=== PATIENT | female | born 1950 | race Caucasian/White ===

== ENCOUNTER 2018-03-06 11:12 | Inpatient (IN) ==
--- NOTE | 2018-03-05 23:19 | Discharge Summary ---
<RenzodelphineAnnabella gutiérrez Nicholas - Last Filed: 03/05/18 23:15> Date of Encounter: 03/05/18 - Discharge Diagnosis (1) Arthritis of knee, left Priority: Primary Status: Acute (2) Status post total hip replacement, left Priority: Primary Status: Acute (3) HTN (hypertension) Priority: Secondary Status: Chronic Qualifiers: Hypertension type: essential hypertension Qualified Code(s): I10 - Essential (primary) hypertension (4) Thyroid disease Priority: Secondary Status: Chronic - Hospital Course Hospital course: Ms. Prasad is a 68 year old female - Time Spent with Patient Total time spent providing and/or coordinating discharge services: - Discharge Medications Home Medications: Glucosamine Sulfate Dipot Chlr [Glucosamine] 1,000 mg PO DAILY 08/17/16 [History ] [place] 250 mg PO DAILY 05/23/17 [History] Ascorbate Calcium [Vitamin C] 500 mg PO DAILY 05/23/17 [History] Cholecalciferol (Vitamin D3) [Vitamin D3] 1,000 unit PO DAILY 05/23/17 [History] Ibuprofen [Motrin] 200 mg PO Q6HR PRN 05/23/17 [History] Aspirin Enteric Coated [Aspirin EC] 325 mg PO BID #20 tablet. 03/05/18 [Rx] OxyCODONE Immed Rel [Roxicodone 5 MG] 5 mg PO Q6HR PRN 7 Days #28 tablet [Rx] Dorzolamide [Trusopt] 1 drop RIGHT EYE BID 03/06/18 [History] Gabapentin [Neurontin] 300 mg PO DAILY 03/06/18 [History] Levothyroxine [Synthroid] 25 mcg PO 0630 03/06/18 [History] Rosuvastatin Calcium 20 mg PO DAILY 03/06/18 [History] hydroCHLOROthiazide [Hydrochlorothiazide] 25 mg PO DAILY 03/06/18 [History] Allergies/Adverse Reactions: 3 Allergy/AdvReac Type Severity Reaction Status Date / Time Penicillins [PCN] AdvReac See Verified 03/06/18 11:47 Comments Primary care physician: Jessica Ren, - Patient Status Disposition: Home, Self-Care Condition: Good - Discharge Instructions Instructions: Aspirin (By mouth), Oxycodone, Rapid Release (By mouth) Follow Up With: Kumar Long MD [Partnered Physician] - 04/05/18 3:50 pm Jessica Ren MD [Primary Care Provider] - Annabella Ang PAC [Physician [employer] Packer] - 03/16/18 10:45 am (ALSO, 03/24/18 @ 10AM ) Pravin Tineo MD [Non-Partnered Physician] - 04/18/18 11:15 am Additional Instructions: Discharge Instructions: Total Knee Replacement Please call [facility] ([phone]), your Primary Care Physician, or report to the Emergency Room if you have any of the following symptoms: Nausea, vomiting, fever greater that 101.5, swelling, chest pain, shortness of breath, increased pain/redness/drainage/odor for your incision site, numbness/ tingling, or any other concerning symptoms. ACTIVITY:Weight-bearing as tolerated. You may progress off support (crutches or walker) as tolerated. MEDICATIONS: Upon discharge resume your home medications. Take all the medications as prescribed. Take a stool softener if taking narcotic pain medications. Stool softeners are only effective if you drink enough fluids. Drink 6-8 glass of water or fluids a day, unless this is not allowed for another health problem. Despite using stool softeners, if you haven't had a bowel movement in 3 days, please switch to a gentle laxative. Gentle laxatives are sold over the counter. You should have a bowel movement within 24 hours, if not call the office. You will be discharged from the hospital with a prescription for pain medication. You are encouraged to decrease the use of narcotic pain medication as tolerated. Should you require a refill, please call the office. [facility] prescribes narcotic pain medication for only 4-6 weeks after surgery. If you require pain medication beyond this time period, you may be referred to your Primary Care Physician or to the Pain Clinic for further evaluation. Plan ahead for refills on pain medication as many narcotics either need to be picked up at the office or mailed. It is best to call 48-72 hours in advance of needing a prescription refill so you don't run out of medication. To help control the post-operative pain, you may take NSAIDs (Aleve,Advil, Motrin, Ibuprofen, Naprosyn) or Tylenol as prescribed on the bottle in addition to the pain medication. ANTICOAGULATION (blood thinners): Continue your Aspirin, Lovenox or Coumadin as prescribed to help prevent a blood clot in the leg or in the lungs. As long as your incision remains dry and you tolerate the NSAIDs (Aleve, Advil, Motrin, ibuprofen, naprosyn), it is OK to use the NSAIDS while you are taking your anticoagulation medication. Should your incision start to drain, stop the NSAID and contact our office. Common symptoms of blood clot in the legs include: localized pain, swelling, calf tenderness, redness or discoloration of the skin. Blood clot in the lung symptoms include: shortness of breath, rapid pulse, sweating, and chest pain that worsens with deep breathing, coughing up blood, lightheadedness, feelings of anxiety. If you experience any of these symptoms notify your physician immediately, go to the emergency room, or if having trouble breathing, call 911. WOUND CARE: Leave the dressing on for 7 to 10days. You may change the dressing if it becomes saturated greater than 50%. Do not get the dressing wet at anytime. Wash your hands with antibacterial soap, rinse and dry prior to any wound care. If you have soniya the visiting nurse or rehab facility can remove the stapes 10-14 days after surgery and place steri-strips across the wound. Leave the steri-strips in place until they fall off on their won. You may let water from the shower run on top of the steri-strips. If you do not have a visiting nurse or rehab facility, you will need to return to the office at 10-14 days for the soniya to be removed. If you have itching or redness around the dressing call the office. FOLLOW-UP: Please follow up with your surgeon in the orthopedic clinic in 4 weeks from the day of surgery. If you have soniya that need to be removed, you will need to come back to the office in 10-14 days from the day of surgery. <Kumar Long - Last Filed: 03/09/18 10:50> Orders not resulted at time of discharge: Pending orders 03/06/18 00:01 XR knee LT limited 1-2V [XR] Routine H/H [Hemoglobin and Hematocrit] [HEME] Routine 03/06/18 12:30 US anesthesia pain block [US] Routine Date of Encounter: 03/09/18 Time of Encounter: 10:48 - Discharge Diagnosis (1) Obesity (BMI 30.0-34.9) Priority: Secondary Status: Chronic (2) Arthritis of knee, left Priority: Primary Status: Chronic (3) Status post total hip replacement, left Priority: Primary Status: Acute (4) HTN (hypertension) Priority: Secondary Status: Chronic Qualifiers: Hypertension type: essential hypertension Qualified Code(s): I10 - Essential (primary) hypertension (5) Thyroid disease Priority: Secondary Status: Chronic - Hospital Course Hospital course: Ms. Prasad is a 68 year old female Status post left total knee replacementThe patient had an uneventful postoperative course. They received antibiotics and physical therapy and were discharged in stable condition. There will follow-up in the office in 2 weeks. - Time Spent with Patient Total time spent providing and/or coordinating discharge services: Primary care physician: Jessica Ren, - Patient Status Functional capacity at discharge: uses cane/walker Overall status at discharge: patient is progressing back to baseline
[2018-03-06] MEDS ORDERED: CeFAZolin Syr 2,000MG/20 ML 2,000 MG/20 ML SYRINGE IVPB ONE (11:53)
[2018-03-06] MEDS ORDERED: Ringers Solution, Lactated 1,000 ML IVC SCH ×2 (12:00→16:11)
--- NOTE | 2018-03-06 12:02 | History & Physical Report ---
Date of Encounter: 03/06/18 Time of Encounter: 12:01 24 Hour HP Update - Instructions Instructions: If the History and Physical is less than 30 days old and was completed prior to A.M. admission and or procedure and has NOT been updated on calendar day of procedure please complete this update prior to performing procedure. - Update Patient reports changes in Medical Condition: No Changes in examination, assessment, or condition: No Changes in Medication: No Preop tests/diagnostics Reviewed: Yes Surgery Remains Indicated: Yes Consent for Planned Operative Procedure(s) Verified: Yes - Pre-Operative Checklist Preoperative Checklist Indicated: No Prophylactic Antibiotic Ordered: Yes Is VTE Prophylaxis Indicated?: Yes
[2018-03-06] MEDS ORDERED: Gabapentin 300 MG CAPSULE PO ONE (12:15)
[2018-03-06] MEDS ORDERED: Famotidine 20 MG/2 ML VIAL IVP ONE (12:15)
--- NOTE | 2018-03-06 12:33 | Anesthesia Evaluation PreOp ---
Date of Encounter: 03/06/18 Time of Encounter: 12:30 - Past History Planned Operation: Robotic Left TKA Cardiac History: HTN, Hyperlipidemia Pulmonary History: Denies Any Significant HX [employer] History: Denies Any Significant HX Other Medical History: Thyroid, GERD Anesthesia History: No Prior Anesthetic Complications : No Alcohol Use: none Drug use: none Medications and Allergies Glucosamine Sulfate Dipot Chlr [Glucosamine] 1,000 mg PO DAILY 08/17/16 [History ] [place] 250 mg PO DAILY 05/23/17 [History] Ascorbate Calcium [Vitamin C] 500 mg PO DAILY 05/23/17 [History] Cholecalciferol (Vitamin D3) [Vitamin D] 1,000 unit PO DAILY 05/23/17 [History] Ibuprofen [Motrin] 200 mg PO Q6HR PRN 05/23/17 [History] Aspirin Enteric Coated [Aspirin EC] 325 mg PO BID #20 tablet. 03/05/18 [Rx] OxyCODONE Immed Rel [Roxicodone 5 MG] 5 mg PO Q6HR PRN 7 Days #28 tablet [Rx] Dorzolamide [Trusopt] 1 drop RIGHT EYE BID 03/06/18 [History] Gabapentin [Neurontin] 300 mg PO DAILY 03/06/18 [History] Levothyroxine [Synthroid] 25 mcg PO 0630 03/06/18 [History] Rosuvastatin Calcium [Rosuvastatin Calcium] 20 mg PO DAILY 03/06/18 [History] hydroCHLOROthiazide [Hydrochlorothiazide] 25 mg PO DAILY 03/06/18 [History] 3 Allergy/AdvReac Type Severity Reaction Status Date / Time Penicillins [PCN] AdvReac See Verified 03/06/18 11:47 Comments - Meds/Allergy Pre-op Review Medications Reviewed: Yes Allergies Reviewed: Yes Beta Blockers on Current Med List: No Anesthesia Results - Labs Laboratory Tests 05/22/16 02/15/18 02/15/18 11:10 12:06 12:06 Hgb 13.1 Hct 40.2 Plt Count 231 PT 11.1 INR 1.0 Sodium Potassium BUN POC Creatinine 0.90 02/15/18 12:06 Hgb Hct Plt Count PT INR Sodium 139 Potassium 3.8 BUN 13 POC Creatinine - Imaging EKG: report reviewed (SB) Anesthesia Exam O2 Sat Height 1.6 m Height 1.6 m Height 1.6 m Weight 77.111 kg Weight 77.111 kg Weight 77.111 kg O2 Sat by Pulse Oximetry 98 O2 Sat by Pulse Oximetry 98 Vital Signs Temp Pulse Resp BP Pulse Ox 98.0 F 67 18 140/73 98 03/06/18 11:31 03/06/18 11:31 03/06/18 11:31 03/06/18 11:31 03/06/18 11:31 Height: 5'3 Weight: 170 lbs NPO (# of Hours): MN Pain Scale: 0 - HEENT Pupil (Motor): Pupils equal, EOMI Mallampati: III Denture Type: Upper: Complete Oral Opening: Less than or equal to 3 - [employer] LOC: Oriented [employer] Motor: Normal RUE, Normal LUE, Normal RLE, Normal LLE, Normal Face [employer] Sensory: Normal: RUE, LUE, RLE, LLE, Face - Cardiac Rhythm: Regular Murmur: None JVD: No Carotid Bruit: No - Pulmonary Breath Sounds: bilateral Clear Respiratory Effort: Symmetrical Anesthesia Assess/Plan ASA Score: 3 (HTN Hypothyroid Gerd Extreme Age) Modified Terry Scale for Level of Consciousness: Cooperative, oriented, and tranquil Anesthetic Plan: General, Regional, MAC Monitoring Plan: Standard Monitors Recovery Plan: PACU (Discussed SAB with Adductor Canal Block, possible GA, agrees to proceed)
[2018-03-06] MEDS ORDERED: *HR* FentaNYL (PF) 100 MCG/2 ML VIAL ONE (12:42)
[2018-03-06] MEDS ORDERED: Ketorolac 30 MG/ML VIAL ONE (12:42)
[2018-03-06] MEDS ORDERED: *HR* Propofol 200 MG/20 ML VIAL IVP ONE (12:42)
[2018-03-06] MEDS ORDERED: Ondansetron 4 MG/2 ML VIAL ONE (12:42)
[2018-03-06] MEDS ORDERED: *HR* Midazolam HCl 2 MG/2 ML VIAL ONE (12:42)
[2018-03-06] MEDS ORDERED: Lidocaine -MPF 2% 2 ML VIAL ONE (12:42)
[2018-03-06] MEDS ORDERED: Dexamethasone 4 MG/ML VIAL ONE (12:42)
[2018-03-06] MEDS ORDERED: ROPIVACAINE HCL/PF 0.5% 30 ML VIAL ONE (13:09)
[2018-03-06] MEDS ORDERED: Bupivacaine/Clonidine Syringe 1 EACH SYRINGE ONE (13:09)
[2018-03-06] MEDS ORDERED: Ethanol\\Acetic Acid\\Na Ace\\Ben 1,000 ML IRRIG.SOLN IR ONE (13:37)
--- NOTE | 2018-03-06 13:37 | Anesthesia Procedures ---
Date of Encounter: 03/06/18 Time of Encounter: 12:30 Procedures: Anesthesia - Nerve Block Procedure Date: 03/06/18 Time: 13:00 Pre-op Diagnosis: Left Knee OA Surgical Procedure: Left TKA Checklist: Correct Patient Identifier Correct side: Left Blood Thinner: No Monitor Applied: EKG, BP, Pulse Oximetry Supplemental Oxygen via Nasal Cannula (L/min): 2 Sedation: Versed (mg): 2 Sedation: Fentanyl (mcg): 50 Indication: Post Op Analgesia Pre-op Neuro Deficits: No Block Type: Other (Adductor Canal Block and IPACK) Catheter placed: No Depth at skin (cm): 4 Sterile Technique: Yes Ultrasound used: Yes Anatomy identified: Yes Visual spread of Local: Yes Neuro Stimulation: No Blood on Needle Aspiration: No Smooth Injection of Local: Yes Pain with Injection of Local: No Prep: Chlorhexadine Needle: 22 x 50 mm Stimuplex Local: 0.25% Bupivicaine w/Clonidine 20 mcg/cc, Ropivacaine Volume (cc): 30cc Ropivacaine, 20cc Bu Number of Attempts: 1 Complications: None/effective block Vitals: Vital Signs/O2 Sat/Glucose, Most Current Temp Pulse Resp BP Pulse Ox 03/06/18 13:29 73 147/72 99 03/06/18 13:19 69 156/82 99 03/06/18 11:55 98.0 F 67 18 140/73 98 03/06/18 11:31 98.0 F 67 18 140/73 98
--- NOTE | 2018-03-06 14:53 | Orthopedic Operative Note ---
Date of procedure: 03/06/18 Pre-op diagnosis: Left knee arthritis Post-op diagnosis: same Procedure: Procedure: Left robotic-assisted Total knee replacement Estimated blood loss: 300 cc Hardware: Metal and polyethylene replacement. [place] Femur: 4 Tibia: 3 TS insert: 11 Patella: 36 Exam Under anesthesia: 3 degree flexion contracture 2 degree valgus as calculated by the robot full flexion and no instability Procedural Notes: Grade 4 arthritic changes all 3 compartments. Operative procedure: The patient was brought to the operating room and placed on the operating room table. After general anesthesia was administered the operative knee was examined. Findings were noted in the exam under anesthesia. The operative extremity was prepped and draped in sterile surgical fashion. The patient received IV antibiotics prior to skin incision. A standard midline incision was made centered over the patella. The incision was made through the skin and subcutaneous tissue. A medial parapatellar tendon approach was performed. Care was taken to preserve tissue along the medial aspect of the patella. And to protect the patella tendon. The deep MCL was released off the medial tibia. The infra patella fat pad was excised. The patella was everted and cut was made at the level of the insertion of the quadriceps and patella tendon. The patella was sized the guide was seated and the lug holes are drilled. Knee was brought into flexion. Patient noted to have grade 4 arthritic changes all 3 compartments. Steinmann pins were placed in the tibia and the femur for the tibial and femoral arrays respectively. Checkpoints were also placed in the tibia and the femur for calculation purposes. The knee including the femur and the tibial registered. Osteophytes, ACL and PCL were excised at this point. Extension and flexion were assessed with a valgus stress components were adjusted on the computer to balance the knee. Femoral cuts were made first with robotic assistance, these included the anterior cut posterior cuts chamfer cuts. Tibial cut was then performed with robotic assistance as well. Bone fragments were removed, as well as the medial and lateral meniscus. The size 4 femoral guide was seated box cut was made lug holes are drilled. The size 3 tibial tray was seated and prepared with the fin cutter. Trial reduction with the 11TS Yara revealed extension of 0 degree and 2 degree valgus full flexion. No varus valgus instability. Trial reduction revealed excellent patella tracking. All trial components were removed all bony surfaces were irrigated. The Tibia was seated followed by the femur, The Yara size 11 was seated and secured patella. Patient had similar findings for motion and stability. The knee was closed by the PA. The knee was then irrigated out with 2 L of pulse irrigation. The extensor mechanism was closed with #2 FiberWire suture and #2 PDS suture. The subcutaneous tissue was then irrigated and closed deep with #1 PDS suture superficially with 0 PDS suture and skin was closed with zip tie The patient was then placed in a sterile dressing and a postoperative brace extubated and transferred to recovery room in stable condition. Anesthesia: GETA Surgeon: Kumar Long Was there an assistant associate full professor present: Yes Valver: Lisa Tejeda Estimated blood loss (cc): 300 Condition: stable Disposition: PACU
[2018-03-06] MEDS ORDERED: *HR* HYDROmorphone (PF) 1 MG/ML SYRINGE IVP PRN (15:14)
[2018-03-06] MEDS ORDERED: *HR* Promethazine 25 MG/ML VIAL IVP PRN (15:14)
--- NOTE | 2018-03-06 16:00 | Anesthesia Evaluation Post Op ---
Date of Encounter: 03/06/18 Time of Encounter: 15:59 - Vital Signs Vital Signs: Vital Signs/O2 Sat, Most Current Temp Pulse Resp BP Pulse Ox 97.2 F L 58 13 126/68 98 03/06/18 15:29 03/06/18 15:49 03/06/18 15:49 03/06/18 15:49 03/06/18 15:49 - Lungs Lungs: Clear Ascult./Percussion - Airway Airway: Non-obstructed - Cardiovascular Regular Rate - Mental Status Mental Status: Alert & Oriented, Answers Appropriately - Pain Pain Scale: 4 - Nausea Vomiting Nausea Vomiting: Not Present - Hydration Hydration: Ice chips, Has not voided - Discharge PostOp Status: Transfer Patient to floor
[2018-03-06] MEDS ORDERED: MOM Conc 10 ML UD.LIQ PO PRN (16:11)
[2018-03-06] MEDS ORDERED: Sennosides 8.6 MG TABLET PO PRN (16:11)
[2018-03-06] MEDS ORDERED: Naloxone 0.4 MG/ML INJ IVP PRN (16:11)
[2018-03-06] MEDS ORDERED: traMADol 50 MG TABLET PO PRN (16:11)
[2018-03-06] MEDS ORDERED: *HR* OxyCODONE/APAP 5/325 TABLET PO PRN (16:11)
[2018-03-06] MEDS ORDERED: Ondansetron 4 MG/2 ML VIAL IVP PRN (16:11)
[2018-03-06] MEDS ORDERED: Temazepam 15 MG CAPSULE PO PRN (16:11)
[2018-03-06] MEDS ORDERED: Clindamycin 900 MG/50 ML 900 MG/50 ML IV.SOLN IVPB SCH (16:11)
[2018-03-06] MEDS: *HR* OxyCODONE Immed Rel 5 MG TABLET PO PRN ×2 (17:15→21:23)
[2018-03-06] MEDS: *HR* Enoxaparin 30 MG/0.3 ML SYRINGE SQ SCH (17:17)
[2018-03-06 17:18] LABS: Hematocrit 37.9 % (35.3-44.9); Hemoglobin 12.4 g/dL (11.5-15.4)
[2018-03-06] MEDS ORDERED: *HR* Enoxaparin 30 MG/0.3 ML SYRINGE SQ SCH (18:00)
[2018-03-06] MEDS: Dorzolamide OPTH 10 ML BOTTLE RIGHT EYE SCH (21:03)
[2018-03-06] MEDS: Clindamycin 900 MG/50 ML 900 MG/50 ML IV.SOLN IVPB SCH (21:04)
[2018-03-07] MEDS: *HR* OxyCODONE Immed Rel 5 MG TABLET PO PRN ×3 (01:32→12:25)
[2018-03-07 02:23] LABS: Hematocrit 31.4 % (35.3-44.9)
[2018-03-07 02:25] LABS: Hemoglobin 10.6 g/dL (11.5-15.4)
[2018-03-07 02:46] LABS: BUN/Creatinine Ratio 26 (6-26); Blood Urea Nitrogen 16 mg/dL (8-23); Calcium 9.3 mg/dL (8.6-10.3); Carbon Dioxide 22 mEq/L (23-29); Chloride 106 mEq/L (98-107); Glucose 138 mg/dL (70-105); Osmolality,Calculated 289 (280-300); Sodium 138 mEq/L (136-145); eGFR For African Americans > 60 (> 60); eGFR For Non-African Americans > 60 (> 60)
[2018-03-07] MEDS: *HR* Enoxaparin 30 MG/0.3 ML SYRINGE SQ SCH (05:08)
[2018-03-07] MEDS: Clindamycin 900 MG/50 ML 900 MG/50 ML IV.SOLN IVPB SCH (05:08)
--- NOTE | 2018-03-07 06:19 | Orthopedics Progress Note ---
Date of Encounter: 03/07/18 Time of Encounter: 06:18 - Assessment and Plan (1) Obesity (BMI 30.0-34.9) Current Visit: Yes Status: Chronic (2) Arthritis of knee, left Current Visit: No Status: Chronic (3) Status post total hip replacement, left Current Visit: No Status: Acute (4) HTN (hypertension) Current Visit: No Status: Chronic Qualifiers: Hypertension type: essential hypertension Qualified Code(s): I10 - Essential (primary) hypertension (5) Thyroid disease Current Visit: No Status: Chronic Subjective Interval history: Patient was seen this morning doing well without complaints. Afebrile vital signs stable. Operative extremity: Neurovascularly intact Dressing clean dry and intact Calves nontender Assessment and plan: Continue with postoperative care Hematocrit 31 Objective Vital signs: Vital Signs Temp Pulse Resp BP Pulse Ox 03/07/18 04:11 98.1 F 53 16 102/63 96 03/06/18 23:53 97.9 F 76 16 107/68 97 03/06/18 19:15 98.1 F 67 16 127/74 97 03/06/18 18:18 97.7 F 66 14 118/65 96 03/06/18 17:12 97.3 F L 65 16 140/71 97 03/06/18 16:41 97.6 F 58 16 133/60 99 03/06/18 16:16 97.6 F 55 16 161/78 96 03/06/18 16:09 97.3 F L 60 16 136/74 99 03/06/18 15:59 97.3 F L 59 15 134/67 98 03/06/18 15:49 58 13 126/68 98 03/06/18 15:39 57 14 111/66 98 03/06/18 15:29 97.2 F L 75 18 145/78 99 03/06/18 13:45 68 108/67 98 03/06/18 13:29 73 147/72 99 03/06/18 13:19 69 156/82 99 03/06/18 11:55 98.0 F 67 18 140/73 98 03/06/18 11:31 98.0 F 67 18 140/73 98 Intake and Output 03/06/18 03/06/18 03/07/18 15:59 23:59 07:59 Intake Total 50 / 50 700 / 700 Output Total 300 / 300 Balance -300 / -300 50 / 50 700 / 700 Intake: IV Fluids 50 / 50 Cleocin Premix 900 MG/50 ML 900 50 / 50 mg In 50 ml @ 50 mls/hr IVPB Q8H TK Rx#:[id number] Oral 0 / 0 700 / 700 Output: Estimated Blood Loss 300 / 300 Other: # Voids 1 Weight 77.111 kg - Labs CBC & BMP: 03/07/18 02:04 03/07/18 02:04 Labs: Abnormal lab results Hgb 10.6 g/dL (11.5-15.4) L D 03/07/18 02:04 Hct 31.4 % (35.3-44.9) L 03/07/18 02:04 Carbon Dioxide 22 mEq/L (23-29) L 03/07/18 02:04 Glucose 138 mg/dL (70-105) H 03/07/18 02:04 - VTE Documentation of Mechanical Device: Venous foot pump, device Consult Discharge Plan - Plan Referrals: Jessica Ren MD [Primary Care Provider] -
[2018-03-07] MEDS ORDERED: Levothyroxine 25 MCG TABLET PO SCH (06:30)
[2018-03-07] MEDS: Dorzolamide OPTH 10 ML BOTTLE RIGHT EYE SCH (07:07)
[2018-03-07] MEDS ORDERED: hydroCHLOROthiazide 25 MG TABLET PO SCH (09:00)
[2018-03-07] MEDS ORDERED: Ascorbic Acid 500 MG TABLET PO SCH (09:00)
[2018-03-07] MEDS ORDERED: Gabapentin 300 MG CAPSULE PO SCH (09:00)
[2018-03-07] MEDS ORDERED: Cholecalciferol (D-3) 1,000 UNIT TABLET PO SCH (09:00)
--- NOTE | 2018-03-07 12:12 | Event Note ---
Date of Encounter: 03/07/18 Time of Encounter: 12:11 PCR - POD#1 - left TKR Patient seen at bedside. *STAPLED* Labs reviewed. STABLE PER Pain control: yes Participating in PT. All questions and concerns addressed. Educated on use of incentive spirometer. Encouraged ambulation and proper hydration. Patient educated on post-operative restrictions and post-operative care. Addressed: home with OUTPATIENT- continuity placed Discharge plan: Home TODAY
[2018-03-07 12:21] VITALS: BP 125/73
== END 2018-03-07 16:39 | disposition home or self-care (01) | DRG 470 ==
LOC: SAMDAY 11:12 → 3NENU 16:54
PROVIDERS: ADMIT Orthopaedic Surgery; ATTEND Orthopaedic Surgery